=== PATIENT | female | born 1980 | race Hispanic/Latino ===

== ENCOUNTER 2024-03-27 13:10 | Emergency (ER) | payer BC ==
[~2024-03-27] VITALS: Ht 160 cm; Wt 54.4 kg
[2024-03-27 14:12] VITALS: PULSE 80; RESP 14; TEMP 98.1; O2SAT 100
[2024-03-27] MEDS ORDERED: NAPROXEN250 MG PO (16:06)
== END 2024-03-27 16:15 | disposition home or self-care (01) ==
LOC: ER 16:14
DX: M79.671 Pain in right foot (principal); W20.8XXA Other cause of strike by thrown, projected or falling object, initial encounter; Y92.89 Other specified places as the place of occurrence of the external cause; M77.51 Other enthesopathy of right foot and ankle
CPT/HCPCS: 99283